=== PATIENT | female | born 1995 | race Caucasian/White ===

== ENCOUNTER 2018-06-15 13:27 | Emergency (ER) | payer MEDICAID ==
[~2018-06-15] VITALS: Ht 162.6 cm; Wt 58.0 kg
[~2018-06-15 13:27] MED LIST: NO HOME MEDS; OMEP-84 PO; ZOF4T PO
[2018-06-15 13:58] LABS: BASOPHILS % (AUTO) 0.1 % (0-1); EOSINOPHILS % (AUTO) 0.1 % (0-6); HEMATOCRIT 36.1 % (35.0-45.0); HEMOGLOBIN 12.8 g/dl (12.0-16.0); LYMPHOCYTES # (AUTO) 1.5 X10'3 (1.1-4.8); LYMPHOCYTES % (AUTO) 12.2 % (21-51); MEAN CORPUSCULAR HEMOGLOBIN 32.7 PG (27.0-31.0); MEAN CORPUSCULAR HGB CONC 35.4 % (33.0-36.5); MEAN CORPUSCULAR VOLUME 92.2 FL (78-98); MONOCYTES # (AUTO) 0.9 X10'3 (0-0.9); MONOCYTES % (AUTO) 7.8 % (2-12); NEUTROPHILS # (AUTO) 9.7 X10'3 (1.8-7.7); NEUTROPHILS % (AUTO) 79.8 % (42-75); PLATELET COUNT 261 X10'3 (140-440); RED BLOOD COUNT 3.92 X10'6 (4.20-5.60); RED CELL DISTRIBUTION WIDTH 13.2 % (11.5-14.5); WHITE BLOOD COUNT 12.1 X10'3 (4.5-11.0)
[2018-06-15 14:06] LABS: PROTHROMBIN TIME 9.9 SECONDS (9.0-12.0)
[2018-06-15 14:13] LABS: ALANINE AMINOTRANSFERASE 16 U/L (12-78); ALBUMIN 3.4 G/DL (3.4-5.0); ALKALINE PHOSPHATASE 57 IU/L (46-116); ANION GAP 11 (8-16); ASPARTATE AMINO TRANSFERASE 15 U/L (10-37); BILIRUBIN,TOTAL 0.3 MG/DL (0.1-1.0); BLOOD UREA NITROGEN 9 MG/DL (7-18); BUN/CREATININE RATIO 15.5 (6.6-38.0); CALCIUM 9.1 MG/DL (8.5-10.1); CHLORIDE 100 MMOL/L (99-107); CREATININE 0.58 MG/DL (0.40-0.90); GLUCOSE 90 MG/DL (70-104); SODIUM 137 MMOL/L (135-145); TOTAL PROTEIN 6.9 G/DL (6.4-8.2); eGFR > 90 ML/MIN
[2018-06-15] MEDS ORDERED: ondansetron/PF 4mg/2ml inj IV ONE (14:30)
[2018-06-15] MEDS ORDERED: diphenhydrAMINE 50 mg/ml inj IV ONE (14:30)
[2018-06-15] MEDS ORDERED: potassium Cl oral solution 20 MEQ/15 ML PO ONE (14:30)
[2018-06-15] MEDS ORDERED: ringers solution, lactated 1000ml IV soln IV ONE (14:30)
[2018-06-15] MEDS ORDERED: metoclopramide 5 mg/ml inj IV ONE (14:30)
[2018-06-15 16:00] LABS: CLARITY,URINE CLEAR (Clear); COLOR,URINE YELLOW (Yellow); GLUCOSE, URINE NEGATIVE (Neg); KETONES,URINE >=80 mg/dl (Neg); LEUKOCYTE ESTERASE ,URINE NEGATIVE (Neg); NITRITES, URINE NEGATIVE (Neg); OCCULT BLOOD,URINE NEGATIVE (Neg); PROTEIN,URINE NEGATIVE (Neg); URINE HCG POSITIVE (NEG); UROBILINOGEN,URINE 0.2 E.U/dL (0.2-1.0)
[2018-06-15 16:01] LABS: UA COLLECTION TYPE CLN CATCH MIDSTREAM
[2018-06-15 16:56] VITALS: BP 131/85
== END 2018-06-15 17:11 | disposition home or self-care (01) ==
LOC: ER 13:28
DX: O21.9 Vomiting of pregnancy, unspecified (principal); O26.892 Other specified pregnancy related conditions, second trimester; R19.7 Diarrhea, unspecified; E87.6 Hypokalemia; Z88.1 Allergy status to other antibiotic agents; Z79.899 Other long term (current) drug therapy; Z3A.00 Weeks of gestation of pregnancy not specified
CPT/HCPCS: 36415; 80053; 81003; 81025; 85025; 85610; 96361; 96374; 96375; 99284; J1200; J2405; J2765; J7120

== ENCOUNTER 2019-11-05 21:12 | Emergency (ER) | payer MEDICAID, OTHER ==
[2019-11-05 21:21] VITALS: BP 114/87
--- NOTE | 2019-11-05 23:56 | NUR ---
PT IS 24 YO FEMALE C/O SORE THROAT 2-3 WEEKS, UNABLE TO SEE PMD DUE TO INSURANCE PROBLEMS, NO RESP DISTRESS, TALKING FULL SENTENCES, WAITING TO BE EVALUATED BY PROVIDER
[2019-11-06] MEDS ORDERED: AMOX-419 PO (00:08)
== END 2019-11-06 00:15 | disposition home or self-care (01) ==
LOC: ER 21:13
DX: J02.0 Streptococcal pharyngitis (principal); B95.5 Unspecified streptococcus as the cause of diseases classified elsewhere; Z88.1 Allergy status to other antibiotic agents; Z79.899 Other long term (current) drug therapy
CPT/HCPCS: 87081; 87880; 99283

== ENCOUNTER 2019-11-26 18:49 | Emergency (ER) | payer MEDICAID ==
[~2019-11-26] VITALS: Ht 162.6 cm; Wt 63.6 kg
[2019-11-26 18:52] VITALS: BP 110/62
[2019-11-26] MEDS ORDERED: CLIN150C8 PO (19:39)
== END 2019-11-26 19:51 | disposition home or self-care (01) ==
LOC: ER 18:49
DX: K02.9 Dental caries, unspecified (principal); Z88.1 Allergy status to other antibiotic agents; Z79.899 Other long term (current) drug therapy
CPT/HCPCS: 99283

== ENCOUNTER 2020-09-13 05:03 | Emergency (ER) | payer MEDICAID ==
[~2020-09-13] VITALS: Ht 162.6 cm; Wt 63.6 kg
[~2020-09-13 05:03] MED LIST changes: +CLIN150C8 PO
[2020-09-13] MEDS ORDERED: metoclopramide 5 mg/ml inj IV ONE (06:15)
[2020-09-13] MEDS ORDERED: normal saline 1000ml 1,000 ML IV ONE (06:15)
[2020-09-13] MEDS ORDERED: ondansetron/PF 4mg/2ml inj IV ONE ×2 (06:15→07:45)
[2020-09-13 06:49] LABS: CLARITY,URINE CLEAR (Clear); COLOR,URINE YELLOW (Yellow); GLUCOSE, URINE NEGATIVE (Neg); KETONES,URINE >=80 mg/dl (Neg); LEUKOCYTE ESTERASE ,URINE SMALL (Neg); NITRITES, URINE NEGATIVE (Neg); OCCULT BLOOD,URINE NEGATIVE (Neg); PROTEIN,URINE NEGATIVE (Neg); UROBILINOGEN,URINE 0.2 E.U/dL (0.2-1.0)
[2020-09-13 07:00] LABS: URINE HCG NEGATIVE (NEG)
[2020-09-13 07:01] LABS: UA COLLECTION TYPE CLN CATCH MIDSTREAM
[2020-09-13 07:05] VITALS: BP 114/69
[2020-09-13 07:07] LABS: BACTERIA,URINE NONE SEEN /HPF (Neg); RBC,URINE NONE SEEN /HPF (0-2); SQUAMOUS EPITHELIAL CELL,UR FEW /LPF (FEW); WBC,URINE 0-4 /HPF (0-4)
[2020-09-13 07:11] LABS: BASOPHILS # (AUTO) 0.1 X10'3 (0-0.2); BASOPHILS % (AUTO) 0.5 % (0-1); EOSINOPHILS % (AUTO) 0.2 % (0-6); HEMATOCRIT 40.1 % (35.0-45.0); HEMOGLOBIN 13.8 g/dl (12.0-16.0); LYMPHOCYTES # (AUTO) 1.7 X10'3 (1.1-4.8); MEAN CORPUSCULAR HEMOGLOBIN 31.1 PG (27.0-31.0); MEAN CORPUSCULAR HGB CONC 34.5 g/dL (33.0-36.5); MEAN CORPUSCULAR VOLUME 90.1 FL (78-98); MEAN PLATELET VOLUME 8.9 FL (7.4-10.4); MONOCYTES # (AUTO) 0.8 X10'3 (0-0.9); MONOCYTES % (AUTO) 7.1 % (2-12); NEUTROPHILS # (AUTO) 8.2 X10'3 (1.8-7.7); NEUTROPHILS % (AUTO) 76.2 % (42-75); PLATELET COUNT 304 X10'3 (140-440); RED BLOOD COUNT 4.45 X10'6 (4.20-5.60); RED CELL DISTRIBUTION WIDTH 12.4 % (11.5-14.5); WHITE BLOOD COUNT 10.8 X10'3 (4.5-11.0)
[2020-09-13 07:25] LABS: ALANINE AMINOTRANSFERASE 28 U/L (12-78); ALBUMIN 2.8 G/DL (3.4-5.0); ALBUMIN/GLOBULIN RATIO 0.6 (1.1-1.5); ALKALINE PHOSPHATASE 69 IU/L (46-116); ANION GAP 13 (8-16); ASPARTATE AMINO TRANSFERASE 15 U/L (10-37); BILIRUBIN,TOTAL 0.5 MG/DL (0.1-1.0); BLOOD UREA NITROGEN 13 MG/DL (7-18); BUN/CREATININE RATIO 20.3 (6.6-38.0); CALCIUM 8.5 MG/DL (8.5-10.1); CHLORIDE 99 MMOL/L (99-107); CREATININE 0.64 MG/DL (0.40-0.90); GLUCOSE 92 MG/DL (70-104); LIPASE 52 U/L (73-393); SODIUM 138 MMOL/L (135-145); TOTAL CARBON DIOXIDE 25.8 MMOL/L (24-32); TOTAL PROTEIN 7.7 G/DL (6.4-8.2); eGFR > 90 ML/MIN
[2020-09-13] MEDS ORDERED: potassium Cl 20 mEq SR tablet PO STA (07:41)
[2020-09-13] MEDS ORDERED: PANT-47 PO (07:44)
[2020-09-13] MEDS ORDERED: PROM25SU9 RC (07:44)
[2020-09-13] MEDS ORDERED: ONDA4TAB6 PO (07:44)
[2020-09-13] MEDS ORDERED: pantoprazole 40 MG vial IV ONE (07:45)
[2020-09-13] MEDS ORDERED: famotidine/PF 10 mg/ml inj IV ONE (07:45)
== END 2020-09-13 08:16 | disposition home or self-care (01) ==
LOC: ER 05:04
DX: K29.70 Gastritis, unspecified, without bleeding (principal); R11.2 Nausea with vomiting, unspecified; E87.6 Hypokalemia; Z88.1 Allergy status to other antibiotic agents; Z79.2 Long term (current) use of antibiotics; Z79.899 Other long term (current) drug therapy
CPT/HCPCS: 36415; 80053; 81001; 81025; 83690; 85025; 87088; 96361; 96374; 96375; 96376; 99284; C9113; J2405; J2765; J3490; J7030

== ENCOUNTER 2020-09-15 21:52 | Emergency (ER) | payer MEDICAID ==
[~2020-09-15] VITALS: Ht 162.6 cm; Wt 63.6 kg
[~2020-09-15 21:52] MED LIST changes: +ONDA4TAB6 PO; +PANT-47 PO; +PROM25SU9 RC
[2020-09-15] MEDS ORDERED: proMETHazine 25mg tablet PO ONE (22:15)
[2020-09-15 22:28] LABS: ALBUMIN 4.6 G/DL (3.4-5.0); ANION GAP 10 (8-16); BLOOD UREA NITROGEN 11 MG/DL (7-18); BUN/CREATININE RATIO 14.3 (6.6-38.0); CALCIUM 8.7 MG/DL (8.5-10.1); CHLORIDE 98 MMOL/L (99-107); CREATININE 0.77 MG/DL (0.40-0.90); GLUCOSE 88 MG/DL (70-104); SODIUM 138 MMOL/L (135-145); eGFR > 90 ML/MIN
[2020-09-15] MEDS ORDERED: potassium Cl 20 mEq SR tablet PO STA (22:32)
[2020-09-15] MEDS ORDERED: magnesium oxide 400mg tablet PO ONE (22:35)
--- NOTE | 2020-09-15 22:35 | NUR ---
dr. martin at bedside assessing patient
[2020-09-15] MEDS ORDERED: ONDA4TAB6 PO (22:54)
[2020-09-15] MEDS ORDERED: PROC25SU31 RC (22:54)
[2020-09-15] MEDS ORDERED: POTA20TA19 PO (22:54)
[2020-09-15] MEDS ORDERED: normal saline 1000ML IV soln IVB ONE (22:55)
[2020-09-15] MEDS ORDERED: ondansetron/PF 4mg/2ml inj IV ONE (22:55)
[2020-09-15] MEDS ORDERED: haloperidol lactate 5mg/ml inj IM ONE (23:40)
[2020-09-15 23:56] VITALS: BP 126/77
--- NOTE | 2020-09-15 23:57 | NUR ---
Up to BR with steady gait to void. Given haldol im for continued nausea.
[2020-09-16 00:09] LABS: URINE AMPHETAMINE SCREEN NEGATIVE (Neg); URINE BARBITUATE SCREEN NEGATIVE (Neg); URINE BENZODIAZEPINES SCREEN NEGATIVE (Neg); URINE CANNABINOID SCREEN POSITIVE (Neg); URINE COCAINE SCREEN NEGATIVE (Neg); URINE METHADONE SCREEN NEGATIVE (Neg); URINE OPIATE SCREEN NEGATIVE (Neg); URINE PHENCYCLIDINE SCREEN NEGATIVE (Neg)
== END 2020-09-16 01:23 | disposition home or self-care (01) ==
LOC: ER 21:52
DX: K29.00 Acute gastritis without bleeding (principal); R11.2 Nausea with vomiting, unspecified; F12.10 Cannabis abuse, uncomplicated; Z87.19 Personal history of other diseases of the digestive system; Z88.1 Allergy status to other antibiotic agents; Z79.2 Long term (current) use of antibiotics; Z79.899 Other long term (current) drug therapy
CPT/HCPCS: 36415; 80048; 80305; 96361; 96372; 96374; 99284; J1630; J2405; J7030; Q0169

== ENCOUNTER 2021-02-11 13:27 | Emergency (ER) | payer MEDICAID ==
[~2021-02-11] VITALS: Ht 170.2 cm; Wt 90.0 kg
[2021-02-11 13:33] VITALS: BP 122/65
--- NOTE | 2021-02-11 15:54 | NUR ---
Called patient regarding patient not being in lobby for the third call to a room. Patients answered and stated that she is laying down and feeling a little better. I educated regarding that fact that he can bring her back anytime if she needs care. He agreed and stated that he would if needed. Dr. Galileo mercedes.
== END 2021-02-11 15:55 | disposition home or self-care (01) ==
LOC: ER 13:28
DX: R11.2 Nausea with vomiting, unspecified (principal); Z53.21 Procedure and treatment not carried out due to patient leaving prior to being seen by health care provider
CPT/HCPCS: 99283

== ENCOUNTER 2021-04-12 08:32 | Emergency (ER) | payer MEDICAID ==
[~2021-04-12] VITALS: Ht 162.6 cm; Wt 70.0 kg
[2021-04-12 08:35] VITALS: BP 129/76
[2021-04-12 09:10] LABS: URINE HCG NEGATIVE (NEG)
[2021-04-12 09:10] LABS: BASOPHILS % (AUTO) 0.3 % (0-1); EOSINOPHILS % (AUTO) 0.1 % (0-6); HEMATOCRIT 41.9 % (35.0-45.0); HEMOGLOBIN 14.5 g/dl (12.0-16.0); LYMPHOCYTES # (AUTO) 1.7 X10'3 (1.1-4.8); LYMPHOCYTES % (AUTO) 11.4 % (21-51); MEAN CORPUSCULAR HGB CONC 34.7 g/dL (33.0-36.5); MEAN CORPUSCULAR VOLUME 89.3 FL (78-98); MEAN PLATELET VOLUME 8.8 FL (7.4-10.4); MONOCYTES # (AUTO) 1.3 X10'3 (0-0.9); MONOCYTES % (AUTO) 8.6 % (2-12); NEUTROPHILS % (AUTO) 79.6 % (42-75); PLATELET COUNT 334 X10'3 (140-440); RED BLOOD COUNT 4.69 X10'6 (4.20-5.60); WHITE BLOOD COUNT 15.1 X10'3 (4.5-11.0)
[2021-04-12 09:20] LABS: CLARITY,URINE CLOUDY (Clear); COLOR,URINE YELLOW (Yellow); GLUCOSE, URINE NEGATIVE (Neg); KETONES,URINE >=80 mg/dl (Neg); LEUKOCYTE ESTERASE ,URINE TRACE (Neg); NITRITES, URINE NEGATIVE (Neg); OCCULT BLOOD,URINE TRACE-INTACT (Neg); PROTEIN,URINE 30 mg/dl (Neg)
[2021-04-12 09:23] LABS: ALANINE AMINOTRANSFERASE 25 U/L (12-78); ALBUMIN 4.4 G/DL (3.4-5.0); ALBUMIN/GLOBULIN RATIO 1.3 (1.1-1.5); ALKALINE PHOSPHATASE 71 IU/L (46-116); ANION GAP 10 (8-16); ASPARTATE AMINO TRANSFERASE 18 U/L (10-37); BILIRUBIN,TOTAL 0.7 MG/DL (0.1-1.0); BLOOD UREA NITROGEN 15 MG/DL (7-18); BUN/CREATININE RATIO 21.1 (6.6-38.0); CALCIUM 8.5 MG/DL (8.5-10.1); CHLORIDE 94 MMOL/L (99-107); CREATININE 0.71 MG/DL (0.40-0.90); GLUCOSE 92 MG/DL (70-104); LIPASE < 50 U/L (73-393); SODIUM 133 MMOL/L (135-145); TOTAL CARBON DIOXIDE 28.8 MMOL/L (24-32); TOTAL PROTEIN 7.8 G/DL (6.4-8.2); eGFR > 90 ML/MIN
[2021-04-12 09:30] LABS: POTASSIUM 2.8 MMOL/L (3.5-5.1)
[2021-04-12 09:31] LABS: UA COLLECTION TYPE CLN CATCH MIDSTREAM
[2021-04-12 09:49] LABS: MUCUS STRANDS MANY /LPF (Neg); RBC,URINE 0-2 /HPF (0-2); SQUAMOUS EPITHELIAL CELL,UR MANY /LPF (FEW)
[2021-04-12 09:50] LABS: BACTERIA,URINE 1+ /HPF (Neg)
[2021-04-12] MEDS ORDERED: potassium Cl 20 mEq SR tablet PO STA (10:24)
[2021-04-12] MEDS ORDERED: haloperidol lactate 5mg/ml inj IM ONE (10:25)
[2021-04-12] MEDS ORDERED: PROC25SU31 RC ×3 (11:30→11:31)
== END 2021-04-12 11:40 | disposition home or self-care (01) ==
LOC: ER 08:32
DX: R11.15 Cyclical vomiting syndrome unrelated to migraine (principal); E87.6 Hypokalemia; R10.13 Epigastric pain; R11.2 Nausea with vomiting, unspecified; Z88.1 Allergy status to other antibiotic agents; Z79.2 Long term (current) use of antibiotics; Z79.899 Other long term (current) drug therapy
CPT/HCPCS: 36415; 80053; 81001; 81025; 83690; 85025; 93005; 96372; 99284; J1630